=== PATIENT | male | born 1955 | race Caucasian/White ===

== ENCOUNTER 2016-03-12 16:46 | Emergency (ER) | payer BC ==
[2016-03-12] MEDS ORDERED: KETOROLAC 60 MG/2 ML VIAL IM ONE (18:44)
== END 2016-03-12 19:15 | disposition home or self-care (01) ==
LOC: ER 16:46
DX: S92.352A Displaced fracture of fifth metatarsal bone, left foot, initial encounter for closed fracture (principal); S22.31XA Fracture of one rib, right side, initial encounter for closed fracture; W01.0XXA Fall on same level from slipping, tripping and stumbling without subsequent striking against object, initial encounter; Y92.009 Unspecified place in unspecified non-institutional (private) residence as the place of occurrence of the external cause; E11.9 Type 2 diabetes mellitus without complications; I10 Essential (primary) hypertension; E78.00 Pure hypercholesterolemia, unspecified; F32.9 Major depressive disorder, single episode, unspecified; Z79.84 Long term (current) use of oral hypoglycemic drugs
CPT/HCPCS: 96372